=== PATIENT | female | born 1995 | race Caucasian/White ===

== ENCOUNTER 2017-12-12 11:04 | Emergency (ER) | payer BC ==
[2017-12-12 11:34] VITALS: BP 112/66
[2017-12-12] MEDS ORDERED: Ibuprofen ADULT LIQ* 600 MG/30 ML UDC PO ONE (11:48)
--- NOTE | 2017-12-12 11:50 | UC ---
UC General HPI - HPI Summary HPI Summary: Patient states this began 2 days ago with a fever up to 103 and sore throat. Yesterday she experienced some nausea vomiting as well but that is since resolved. She denies any runny nose cough short of breath current nausea vomiting and diarrhea as well as dysuria. She denies any sick contacts. - History of Current Complaint Chief Complaint: UCGI Stated Complaint: FEVER/VOMITING X 3 DAYS Time Seen by Provider: 12/12/17 11:38 Hx Obtained From: Patient Hx Last Menstrual Period: 12/10/17; on bcp Onset/Duration: Gradual Onset Timing: Constant Pain Intensity: 6 Aggravating: Nothing Alleviating: Tylenol seems to help Associated Signs & Symptoms: Positive: Fever - Allergy/Home Medications Allergies/Adverse Reactions: Allergies Allergy/AdvReac Type Severity Reaction Status Date / Time No Known Allergies Allergy Verified 12/12/17 11:23 Home Medications: Home Medications Norethindrone AC-Eth Estradiol [Loestrin 21 1-20 Tablet] 1 tab DAILY 12/12/17 [ History Confirmed 12/12/17] PMH/Surg Hx/FS Hx/Imm Hx Endocrine History: Thyroid Disease - Surgical History Surgical History: None - Family History Known Family History: Positive: Cardiac Disease - Social History Occupation: Employed Full-time Lives: With Family Alcohol Use: Rare Substance Use Type: None Smoking Status (MU): Never Smoked Tobacco - Immunization History Most Recent Tetanus Shot: UTD Vaccination Up to Date: Yes Review of Systems Constitutional: Fever Skin: Negative Eyes: Negative ENT: Sore Throat Respiratory: Negative Cardiovascular: Negative Gastrointestinal: Vomiting, Nausea Genitourinary: Negative Motor: Negative Neurovascular: Negative Musculoskeletal: Negative Neurological: Negative Psychological: Negative Is Patient Immunocompromised?: No All Other Systems Reviewed And Are Negative: Yes Physical Exam Triage Information Reviewed: Yes Appearance: Well-Appearing Vital Signs: Initial Vital Signs Temp 97.8 F 12/12/17 11:24 Pulse 96 12/12/17 11:24 Resp 16 12/12/17 11:24 BP 112/66 12/12/17 11:24 Pulse Ox 100 12/12/17 11:24 Vital Signs Reviewed: Yes Eyes: Positive: Conjunctiva Clear ENT: Positive: Pharyngeal erythema, TMs normal, Tonsillar exudate, Uvula midline. Negative: Nasal congestion, Nasal drainage, Tonsillar swelling, Trismus, Muffled voice, Hoarse voice Neck: Positive: Supple, Tenderness @ - Peritonsillar nodes, Enlarged Nodes @ - Peritonsillar nodes Respiratory: Positive: Lungs clear, Normal breath sounds Cardiovascular: Positive: RRR, No Murmur Abdomen Description: Positive: Nontender, No Organomegaly, Soft. Negative: CVA Tenderness (R), CVA Tenderness (L), Distended, Guarding Bowel Sounds: Positive: Present Musculoskeletal: Positive: ROM Intact Neurological: Positive: Alert Psychological: Positive: Age Appropriate Behavior Skin Exam: Normal Diagnostics - Laboratory Diagnostic Studies Completed/Ordered: RAPID STREP=NEG Course/Dx - Course Course Of Treatment: Patient is nontoxic. Rapid strep screen is negative. No concern for peritonsillar abscess. Treatment is supportive. - Differential Dx - Multi-Symptom Provider Diagnoses: Tonsillitis Discharge - Sign-Out/Discharge Documenting (check all that apply): Patient Departure All imaging exams completed and their final reports reviewed: No Studies - Discharge Plan Condition: Stable Disposition: HOME Patient Education Materials: Tonsillitis (ED) Additional Instructions: FOLLOW UP [facility] IN 5-7 DAYS OR SOONER IF WORSE. - Billing Disposition and Condition Condition: STABLE Disposition: Home
== END 2017-12-12 12:15 | disposition home or self-care (01) ==
LOC: UCCORT 11:04
DX: J03.90 Acute tonsillitis, unspecified (principal)
CPT/HCPCS: 87651; 99212; A9270-GY; G0463

== ENCOUNTER 2018-02-06 15:54 | Emergency (ER) | payer BC, OTHER ==
[2018-02-06 17:15] VITALS: BP 126/78
--- NOTE | 2018-02-06 17:55 | UC ---
UC General HPI - HPI Summary HPI Summary: pt c/o 3 day hx head congestion, cough and feeling feverish. - History of Current Complaint Chief Complaint: UCRespiratory Stated Complaint: COUGH,FEVER Time Seen by Provider: 02/06/18 17:10 Hx Obtained From: Patient Hx Last Menstrual Period: 2.5 weeks Onset/Duration: Gradual Onset Timing: Constant Pain Intensity: 6 Associated Signs & Symptoms: Positive: Cough. Negative: Chest Pain, SOB, Wheezing - Allergy/Home Medications Allergies/Adverse Reactions: Allergies Allergy/AdvReac Type Severity Reaction Status Date / Time lactose Allergy Diarrhea Verified 02/06/18 17:10 juicy juice Allergy Hives Uncoded 02/06/18 17:10 Home Medications: Home Medications Abx For Tooth Infection 1 dose PO TID 02/06/18 [History Confirmed 02/06/18] Tylenol Cough And Sinus 2 tab PO ONCE PRN 02/06/18 [History Confirmed 02/06/18] PMH/Surg Hx/FS Hx/Imm Hx Endocrine History: Thyroid Disease - Surgical History Surgical History: None - Family History Known Family History: Positive: Cardiac Disease - Social History Lives: With Family Alcohol Use: Rare Substance Use Type: None Smoking Status (MU): Never Smoked Tobacco - Immunization History Most Recent Tetanus Shot: UTD Vaccination Up to Date: Yes Review of Systems Constitutional: Fever Skin: Negative Eyes: Negative ENT: Sinus Congestion Respiratory: Cough Cardiovascular: Negative Gastrointestinal: Negative Genitourinary: Negative Motor: Negative Neurovascular: Negative Musculoskeletal: Negative Neurological: Negative Psychological: Negative Is Patient Immunocompromised?: No All Other Systems Reviewed And Are Negative: Yes Physical Exam Triage Information Reviewed: Yes Appearance: Well-Appearing Vital Signs: Initial Vital Signs Temp 98.6 F 02/06/18 17:11 Pulse 86 02/06/18 17:11 Resp 18 02/06/18 17:11 BP 126/78 02/06/18 17:11 Pulse Ox 100 02/06/18 17:11 Vital Signs Reviewed: Yes Eyes: Positive: Conjunctiva Clear ENT: Positive: Pharynx normal, Nasal congestion, TMs normal, Sinus tenderness. Negative: Nasal drainage Neck: Positive: Supple, Nontender, No Lymphadenopathy Respiratory: Positive: Lungs clear, Normal breath sounds Cardiovascular: Positive: RRR, No Murmur Abdomen Description: Positive: Nontender, No Organomegaly, Soft Bowel Sounds: Positive: Present Musculoskeletal: Positive: ROM Intact Neurological: Positive: Alert Psychological: Positive: Age Appropriate Behavior Skin Exam: Normal Course/Dx - Differential Dx - Multi-Symptom Provider Diagnoses: URI Discharge - Sign-Out/Discharge Documenting (check all that apply): Patient Departure All imaging exams completed and their final reports reviewed: No Studies - Discharge Plan Condition: Stable Disposition: HOME Patient Education Materials: Upper Respiratory Infection (ED) Referrals: DILIP Chino [Medical Doctor] - Additional Instructions: follow up dilip if not better in 7 days - Billing Disposition and Condition Condition: STABLE Disposition: Home
== END 2018-02-06 18:35 | disposition home or self-care (01) ==
LOC: UCCORT 15:54
DX: J06.9 Acute upper respiratory infection, unspecified (principal); E73.9 Lactose intolerance, unspecified; Z91.018 Allergy to other foods; Z79.2 Long term (current) use of antibiotics
CPT/HCPCS: 99211; G0463

== ENCOUNTER 2018-02-20 11:27 | Emergency (ER) | payer OTHER ==
[2018-02-20 11:52] VITALS: BP 123/81
[2018-02-20] MEDS ORDERED: Ibuprofen TAB* 600 MG PO ONE (12:03)
--- NOTE | 2018-02-20 12:40 | UC ---
Back Pain HPI - HPI Summary HPI Summary: 22-year-old woman comes to clinic today with a chief complaint of low back pain and near syncope. Patient suffered from low back pain for years. This morning when she woke up the low back pain was worse she's ever had and she's having tingling and pain radiating down the legs. She is able to walk no loss of control of bowel or bladder. There is no acute trauma known. When she was at work when she was turning and twisting she felt lightheaded and her arms were tingling and her legs would no longer hold her up and she fell to the ground. Denies any chest pain or palpitations. No focal weakness or numbness. She feels that her legs feel weak and they were more weak at that time that she almost passed out. - History of Current Complaint Chief Complaint: UCBackPain Stated Complaint: BACK PAIN Time Seen by Provider: 02/20/18 11:43 Hx Last Menstrual Period: 02/15/18 Pain Intensity: 7 - Allergies/Home Medications Allergies/Adverse Reactions: Allergies Allergy/AdvReac Type Severity Reaction Status Date / Time lactose Allergy Diarrhea Verified 02/06/18 17:10 juicy juice Allergy Hives Uncoded 02/06/18 17:10 PMH/Surg Hx/FS Hx/Imm Hx Previously Healthy: Yes - CRONIC LOW BACK PAIN - Surgical History Surgical History: None - Family History Known Family History: Positive: Cardiac Disease, Diabetes - Social History Alcohol Use: Rare Substance Use Type: None Smoking Status (MU): Never Smoked Tobacco - Immunization History Most Recent Tetanus Shot: UTD Vaccination Up to Date: Yes Review of Systems Constitutional: Negative Skin: Negative Eyes: Negative ENT: Negative Respiratory: Negative Cardiovascular: Negative Gastrointestinal: Negative Genitourinary: Negative Motor: Other - SEE HPI Neurovascular: Other - SEE HPI Musculoskeletal: Other: - SEE HPI Neurological: Other - SEE HPI Psychological: Negative Is Patient Immunocompromised?: No All Other Systems Reviewed And Are Negative: Yes Physical Exam Triage Information Reviewed: Yes Appearance: Well-Appearing, Well-Nourished, Pain Distress - MILD PAIN DISTRESS Vital Signs: Initial Vital Signs Temp 96.9 F 02/20/18 11:44 Pulse 100 02/20/18 11:44 Resp 20 02/20/18 11:44 BP 123/81 02/20/18 11:44 Pulse Ox 100 02/20/18 11:44 Vital Signs Reviewed: Yes Eye Exam: Normal Eyes: Positive: Conjunctiva Clear Neck exam: Normal Neck: Positive: Supple Respiratory: Positive: Lungs clear, Normal breath sounds, No respiratory distress Cardiovascular: Positive: RRR Musculoskeletal: Positive: Strength Intact, ROM Intact Neurological: Positive: Muscle Tone Normal, Other: - Patellar reflexes are 2+ bilaterally. Patient reports that she can feel me touching her legs bilaterally. There is no facial droop there is no drift of the arms. Strength is 5 out of 5 with foot ankle plantar flexion and dorsiflexion. Muscle strength is normal with knee extension and flexion and hip flexion bilaterally. The hip flexion does make the low back pain worse. Psychological Exam: Normal Psychological: Positive: Normal Response To Family, Age Appropriate Behavior Skin Exam: Normal Diagnostics - EKG Cardiac Rate: NL - AT 12:28 Cardiac Rhythm: Sinus: Normal - 74BPM Ectopy: None ST Segment: Normal Back Pain Course/Dx - Course Course Of Treatment: Order Information: CT SPINE LUMBAR W/O. Accession Number: [id number]. CPT: 65010. INDICATION: Low back pain with radiation down the posterior legs. COMPARISON: There are no prior studies available for comparison. TECHNIQUE: Contiguous axial sections were obtained beginning lower thoracic vertebra and. continuing through the sacrum. Images were reconstructed in the sagittal and coronal. planes. FINDINGS: There is a mild degree of straightening of the normal lumbar lordosis on the sagittal. plane images. The vertebra and facet joints are otherwise appropriately aligned. No. fracture is seen. There is no hyperdense material in the thecal sac to indicate acute. hemorrhage. There is a mild degree of loss of intervertebral disc height at multiple lower thoracic. and lumbar levels. There is a focus of vacuum disc phenomenon at L2/L3. At L2/L3 there is a mild degree of broad- based disc protrusion that does not yield any. significant central canal or neural foraminal stenosis. At L3/L4 there is broad-based disc protrusion combining with facet arthropathy and. thickening of ligamentum flavum to cause a very mild degree of central canal stenosis. At L4/L5 there is broad-based disc protrusion combining with facet arthropathy and. thickening of the ligamentum flavum to cause a moderate degree of central canal stenosis. and mild bilateral neural foraminal stenosis. The visualized soft tissues do not exhibit any acute abnormalities. IMPRESSION: Degenerative disc disease of the lower lumbar spine causing. Degrees of. central canal or neural foraminal stenoses most severe at L4/L5. If clinically warranted. superior characterization can be made with a nonemergent MRI of the lumbar spine. . <Electronically signed by Parminder Garcia MD in OV> 02/20/18 [id number]. I discussed the CT results with the patient and also EKG. I believe the near syncopal episode was secondary to increase in low back pain when she was turning and twisting at work. She had no chest pain or palpitations. She does have some disc protrusions and central canal and facet stenosis and her lower back on CT. On examination today she does not have any neurologic deficits. No loss of control of bowel or bladder. The plan now is anti-inflammatories ibuprofen and muscle relaxers Flexeril as needed and also hydrocodone as needed. Follow up with her primary care doctor is scheduled for March 05, 2018. I let her know to keep this appointment and discuss further treatment with her primary care doctor. I let her know also if she started with a neurologic deficits of weakness or numbness or difficulty controlling bowel or bladder she needed to get evaluated in the emergency department right away. - Differential Dx/Diagnosis Provider Diagnoses: LOW BACK PAIN. LUMBAR RADICULOPATHY. NEAR SYNCOPE. DEGENERATIVE DISC DISEASE Discharge - Sign-Out/Discharge Documenting (check all that apply): Patient Departure All imaging exams completed and their final reports reviewed: Yes - Discharge Plan Condition: Stable Disposition: HOME Prescriptions: Cyclobenzaprine TAB* [Flexeril 10 MG TAB*] 10 mg PO TID PRN #15 tab MDD 3 PRN Reason: Pain HYDROcodone/ACETAMIN 5-325 MG* [[place] 5-325 TAB*] 1 tab PO Q4H PRN #20 tab MDD 6 PRN Reason: Pain Ibuprofen TAB* [Motrin TAB* 600 MG] 600 mg PO Q6H PRN #30 tab PRN Reason: Pain Patient Education Materials: Acute Low Back Pain (ED), Chronic Back Pain (DC), Lower Back Exercises (ED), Lumbar Radiculopathy (ED), Degenerative Disc Disease (ED), Near Syncope (ED) Forms: *Work Release Referrals: [facility] [Outside] Additional Instructions: FOLLOW UP WITH YOUR DOCTOR SCHEDULED ON 02/20/18. GO TO THE EMERGENCY DEPARTMENT FOR ANY WORSENING OF YOUR CONDITION; WEAKNESS, NUMBNESS, DIFFICULTY CONTROLLING BOWEL OR BLADDER OR QUESTIONS OR CONCERNS. - Billing Disposition and Condition Condition: STABLE Disposition: Home
== END 2018-02-20 13:20 | disposition home or self-care (01) ==
LOC: UCCORT 11:27
DX: M51.16 Intervertebral disc disorders with radiculopathy, lumbar region (principal); R55 Syncope and collapse; Z91.011 Allergy to milk products; Z91.018 Allergy to other foods
CPT/HCPCS: 72131; 93005; 99212; A9270-GY; G0463

== ENCOUNTER 2018-04-16 11:02 | Emergency (ER) | payer OTHER ==
[2018-04-16 11:36] VITALS: BP 118/82
--- NOTE | 2018-04-16 11:53 | UC ---
Throat Pain/Nasal Mohan HPI - HPI Summary HPI Summary: 22-year-old female presents with 3 day history of nasal congestion, clear nasal drainage, sore throat, and a nonproductive cough. States last night she started to develop some right eye redness and this morning woke up with the eye crusted shut and has had continued purulent drainage. States her child is also been sick with URI symptoms as well as bilateral eye redness and discharge. Denies fever, chills, ear pain, dysphagia, chest pain, shortness of breath, abdominal pain, nausea, vomiting, or diarrhea. - History of Current Complaint Chief Complaint: UCRespiratory Stated Complaint: COUGH, EYE COMPLAINT Time Seen by Provider: 04/16/18 11:44 Hx Obtained From: Patient Hx Last Menstrual Period: 2.5 WEEKS AGO Pain Intensity: 5 - Allergies/Home Medications Allergies/Adverse Reactions: Allergies Allergy/AdvReac Type Severity Reaction Status Date / Time lactose Allergy Diarrhea Verified 04/16/18 11:32 juicy juice Allergy Hives Uncoded 04/16/18 11:32 PMH/Surg Hx/FS Hx/Imm Hx Previously Healthy: Yes - Denies significant PMH - Surgical History Surgical History: None - Family History Known Family History: Positive: Cardiac Disease, Diabetes - Social History Occupation: Employed Full-time Lives: With Family Alcohol Use: Rare Substance Use Type: None Smoking Status (MU): Never Smoked Tobacco - Immunization History Most Recent Tetanus Shot: UTD Vaccination Up to Date: Yes Review of Systems All Other Systems Reviewed And Are Negative: Yes Constitutional: Negative: Fever, Chills Skin: Negative: Rash Eyes: Positive: Drainage, Eye Redness, Photophobia. Negative: Blurred Vision, Diplopia ENT: Positive: Sore Throat, Nasal Discharge, Sinus Congestion. Negative: Ear Ache, Sinus Pain/Tenderness Respiratory: Positive: Cough. Negative: Shortness Of Breath Cardiovascular: Negative: Palpitations, Chest Pain Gastrointestinal: Negative: Abdominal Pain, Vomiting, Diarrhea, Nausea Genitourinary: Positive: Negative Neurological: Positive: Negative Is Patient Immunocompromised?: No Physical Exam - Summary Physical Exam Summary: GENERAL APPEARANCE: Well developed, well nourished, alert and cooperative, and appears to be in no acute distress. EYES: Right eye with conjunctival erythema and scant amount of purulent drainage. Left eye normal. Vision is grossly intact. EARS: External auditory canals and tympanic membranes clear, hearing grossly intact. NOSE: Mild nasal congestion without nasal discharge. THROAT: Mild pharyngeal erythema without tonsilar inflammation, swelling, exudate, or lesions. NECK: Neck supple, non-tender without lymphadenopathy. CARDIAC: Normal S1 and S2. No S3, S4 or murmurs. Rhythm is regular. There is no peripheral edema, cyanosis or pallor. Extremities are warm and well perfused. Capillary refill is less than 2 seconds. LUNGS: Clear to auscultation and percussion without rales, rhonchi, wheezing or diminished breath sounds. ABDOMEN: Positive bowel sounds. Soft, nondistended, nontender. No guarding or rebound. No masses or hepatosplenomegally. MUSKULOSKELETAL: ROM intact to all extremities. No joint erythema or tenderness. Normal muscular development. Normal gait. SKIN: Skin normal color, texture and turgor with no lesions or eruptions. Triage Information Reviewed: Yes Vital Signs: Initial Vital Signs Temp 98.1 F 04/16/18 11:33 Pulse 102 04/16/18 11:33 Resp 18 04/16/18 11:33 BP 118/82 04/16/18 11:33 Pulse Ox 99 04/16/18 11:33 Vital Signs Reviewed: Yes Throat Pain/Nasal Course/Dx - Course Course Of Treatment: 22-year-old female presents with 3 day history of nasal congestion, clear nasal drainage, sore throat, and a nonproductive cough. States last night she started to develop some right eye redness and this morning woke up with the eye crusted shut and has had continued purulent drainage. States her child is also been sick with URI symptoms as well as bilateral eye redness and discharge. Denies fever, chills, ear pain, dysphagia , chest pain, shortness of breath, abdominal pain, nausea, vomiting, or diarrhea. Afebrile. Vital signs stable. Exam reveals some right eye erythema with scant amount of purulent discharge, mild nasal congestion, pharyngeal erythema without tonsillar swelling or exudate, no cervical lymphadenopathy, bilateral breath sounds clear, and remainder of exam was unremarkable. Suspect viral upper respiratory infection with right bacterial conjunctivitis. Will treat conjunctivitis with Polytrim 1 drop every 3 hours while awake 7 days and recommend symptomatic treatment of the URI. Patient is to follow-up with her primary care provider in 7 days if symptoms do not improve. Warning symptoms were reviewed with the patient. She verbalizes understanding and agrees with plan of care. - Differential Dx/Diagnosis Differential Diagnosis/HQI/PQRI: Influenza, Otitis Media, Pharyngitis, Tonsillitis, URI, Other - Conjunctivitis Provider Diagnosis: Viral URI with cough, Conjunctivitis Discharge - Sign-Out/Discharge Documenting (check all that apply): Patient Departure All imaging exams completed and their final reports reviewed: No Studies - Discharge Plan Condition: Stable Disposition: HOME Prescriptions: Polymyx/Trimethoprim OPTH* [Polytrim OPHTH*] 1 drop RIGHT EYE Q3H 7 Days #1 btl Patient Education Materials: Upper Respiratory Infection (ED), Conjunctivitis ( ED) Referrals: No Primary Care Phys,NOPCP [Primary Care Provider] - Additional Instructions: our history and exam are consistent with a viral upper respiratory infection. Viral infections do not respond to antibiotics and are limited to the treatment of symptoms. Viral infections typically run their course in 7-10 days. Drink plenty of fluids to avoid dehydration especially if you are running any fever. Use a saline rinse kit such as Neti Pot or NeilMed at least twice a day to help thin secretions and promote drainage of the sinuses. Use fluticasone (Flonase) nasal spray 2 sprays each nostril once daily. Take over the counter acetaminophen (Tylenol) or ibuprofen (Advil, Motrin) according to directions as needed for pain or fever. Use salt water gargles several times a day if you have a sore throat. You may also use Chloraseptic spray or Cepacol lonzenges according to directions which contain a numbing medication and can provide some temporary relief from your sore throat. For the conjunctivitis (pink eye) of the right eye we will treat with Polytrim eye drops 1 drop into the affected eye every 3 hours while awake for maximum of 6 doses x 7 days. Do not touch eye and use good hand hygiene. Do not share towels or wash cloths with other to prevent spreading the infection. Use towels and wash cloths only once and launder. Change your pillow case each morning until you have completed the antibiotics. Throw away any eye makeup you have been using, replace with new makeup but do not use until you have completed treatment. Follow up with your primary care provider in 7 days if symptoms persist. Seek immediate medical attention in the emergency room if you have fever greater than 100.5 F despite taking acetaminophen or ibuprofen, have chest pain , difficulty breathing, are unable to swallow, or have any worsening of symptoms. - Billing Disposition and Condition Condition: STABLE Disposition: Home
== END 2018-04-16 12:23 | disposition home or self-care (01) ==
LOC: UCCORT 11:02
DX: J06.9 Acute upper respiratory infection, unspecified (principal); R05 Cough; H10.9 Unspecified conjunctivitis
CPT/HCPCS: 99212; G0463

== ENCOUNTER 2018-11-11 14:49 | Emergency (ER) | payer BC, OTHER ==
[2018-11-11 15:19] VITALS: BP 110/64
--- NOTE | 2018-11-11 15:35 | ED ---
Abdominal Pain/Female - HPI Summary HPI Summary: 22 yr old female with intermittent right lower quadrant pain that comes and goes for the past week. Presently gone. She has not had an OB appointment yet. She states she feels she is 2 months . She has had no labs or US to date. No other complaints. - History of Current Complaint Chief Complaint: UCGeneralIllness Stated Complaint: 2 MONTHS /PAIN RIGHT SIDE/NAUSEA Time Seen by Provider: 11/11/18 15:21 Hx Last Menstrual Period: 2.5 WEEKS AGO Pain Intensity: 6 Allergies/Adverse Reactions: Allergies Allergy/AdvReac Type Severity Reaction Status Date / Time lactose Allergy Diarrhea Verified 11/11/18 15:11 juicy juice Allergy Hives Uncoded 11/11/18 15:11 Home Medications: Home Medications Acetaminophen [Tylenol Extra Strength] 1,000 mg PO Q6H PRN 11/11/18 [History Confirmed 11/11/18] Cyclobenzaprine (NF) [Cyclobenzaprine 5 MG (NF)] 5 mg PO TID PRN 11/11/18 [ History Confirmed 11/11/18] PMH/Surg Hx/FS Hx/Imm Hx Respiratory History: Reports: Hx Asthma Infectious Disease History: No Infectious Disease History: Denies: Traveled Outside the [place] in Last 30 Days - Family History Known Family History: Positive: Cardiac Disease, Diabetes - Social History Alcohol Use: Occasionally Substance Use Type: Reports: None Smoking Status (MU): Never Smoked Tobacco Review of Systems Constitutional: Negative Positive: Abdominal Pain. Negative: Vomiting, Diarrhea, Nausea Negative: dysuria, frequency, flank pain, urgency All Other Systems Reviewed And Are Negative: Yes Physical Exam Triage Information Reviewed: Yes Vital Signs On Initial Exam: Initial Vitals Temp Pulse Resp BP Pulse Ox 98.5 F 94 24 110/64 99 11/11/18 15:14 11/11/18 15:14 11/11/18 15:14 11/11/18 15:14 11/11/18 15:14 Vital Signs Reviewed: Yes Appearance: Positive: Well-Appearing, No Pain Distress Skin: Positive: Warm, Skin Color Reflects Adequate Perfusion Head/Face: Positive: Normal Head/Face Inspection Eyes: Positive: EOMI ENT: Positive: Normal ENT inspection Neck: Positive: Nontender Respiratory/Lung Sounds: Positive: Clear to Auscultation, Breath Sounds Present Cardiovascular: Positive: RRR. Negative: Murmur Abdomen Description: Positive: Nontender. Negative: CVA Tenderness (R), CVA Tenderness (L) Musculoskeletal: Positive: Strength/ROM Intact Neurological: Positive: Sensory/Motor Intact, Alert, Oriented to Person Place, Time, CN Intact II-III Psychiatric: Positive: Normal Diagnostics - Vital Signs Vital Signs Temp Pulse Resp BP Pulse Ox 11/11/18 15:14 98.5 F 94 24 110/64 99 - Laboratory Lab Statement: Any lab studies that have been ordered have been reviewed, and results considered in the medical decision making process. Abdominal Pain Fem Course/Dx - Course Course Of Treatment: 22 yr old female presently pain free with intermittent pain. She will go to the ER for further eval. She verbalized she does not want an ambulance and she will go after leaving here. - Diagnoses Provider Diagnoses: Right lower quadrant abdominal pain Discharge - Sign-Out/Discharge Documenting (check all that apply): Patient Departure All imaging exams completed and their final reports reviewed: No Studies - Discharge Plan Condition: Good Disposition: HOME-RECOMMEND TO ED Patient Education Materials: Acute Abdominal Pain (ED) Referrals: No Primary Care Phys,NOPCP [Primary Care Provider] - Additional Instructions: You need to go to the ER immediately after leaving here for further evaluation of your abdominal pain. - Billing Disposition and Condition Condition: GOOD Disposition: Home-Recommend to ED
== END 2018-11-11 15:46 | disposition home health service (06) ==
LOC: UCCORT 14:49
DX: O26.899 Other specified pregnancy related conditions, unspecified trimester (principal); R10.31 Right lower quadrant pain; Z3A.00 Weeks of gestation of pregnancy not specified
CPT/HCPCS: 99212; G0463